=== PATIENT | female | born 1970 | race Caucasian/White ===

== ENCOUNTER 2022-08-19 13:07 | Emergency (ER) | payer BC ==
[2022-08-19 14:14] VITALS: BP 147/79; PULSE 94; RESP 20; TEMP 98.4; BMI 29.1
== END 2022-08-19 14:16 | disposition home or self-care (01) ==
LOC: FER 13:07
DX: S86.111A Strain of other muscle(s) and tendon(s) of posterior muscle group at lower leg level, right leg, initial encounter (principal); X58.XXXA Exposure to other specified factors, initial encounter; Y93.73 Activity, racquet and hand sports
CPT/HCPCS: 99283-25

== ENCOUNTER 2023-04-12 07:59 | Day surgery (SDC) | payer BC ==
[2023-04-12] MEDS ORDERED: MIDAZOLAM HCL 2 MG/2 ML SINGLE DOSE VIAL ONE (08:07)
[2023-04-12] MEDS ORDERED: FENTANYL CITRATE/PF 50 MCG/ML VIAL ONE (08:07)
[2023-04-12] MEDS ORDERED: PROPOFOL 20 ML ONE ×2 (08:07→08:13)
[2023-04-12 08:28] VITALS: BMI 29.1
[2023-04-12 11:10] VITALS: BP 132/79; PULSE 94; RESP 18; TEMP 97.1
[2023-04-12] MEDS ORDERED: ONDANSETRON 4 MG/2 ML VIAL IVPUSH PRN (11:27)
[2023-04-12] MEDS ORDERED: oxyCODONE HCL 5 MG TABLET PO PRN (11:27)
[2023-04-12] MEDS ORDERED: LACTATED RINGERS SOLUTION 1,000 ML IV SCH (11:30)
== END 2023-04-12 12:23 | disposition home or self-care (01) ==
LOC: JASU-SURG 07:59
PROVIDERS: ATTEND Obstetrics & Gynecology
PROC: 0UB98ZZ Excision of Uterus, Via Natural or Artificial Opening Endoscopic (ICD-10-PCS; principal; 2023-04-12 09:00)
DX: N93.9 Abnormal uterine and vaginal bleeding, unspecified (principal); D64.9 Anemia, unspecified; D25.9 Leiomyoma of uterus, unspecified
CPT/HCPCS: 81025; 88305-TC; 94760

== ENCOUNTER 2023-10-21 17:57 | Emergency (ER) | payer BC ==
[2023-10-21 18:20] VITALS: BP 131/82; PULSE 87; RESP 16; TEMP 97.7; BMI 24.1
== END 2023-10-21 19:15 | disposition home or self-care (01) ==
LOC: FER 17:57
PROC: 0XQPXZZ Repair Left Index Finger, External Approach (ICD-10-PCS; principal; 2023-10-21)
DX: S61.211A Laceration without foreign body of left index finger without damage to nail, initial encounter (principal); W26.8XXA Contact with other sharp object(s), not elsewhere classified, initial encounter; Y93.H2 Activity, gardening and landscaping
CPT/HCPCS: 99283-25